=== PATIENT | female | born 1970 | race Caucasian/White ===

== ENCOUNTER 2017-03-02 21:03 | Observation (INO) ==
[2017-03-02] MEDS ORDERED: Naloxone 0.4 MG/ML INJ IVP PRN (21:23)
[2017-03-02] MEDS ORDERED: traMADol 50 MG TABLET PO PRN (23:10)
[2017-03-03] MEDS: Acetaminophen 325 MG TABLET PO SCH ×4 (00:01→17:52)
[2017-03-03] MEDS: *HR* Rivaroxaban 15 MG TABLET PO SCH ×2 (00:04→17:52)
[2017-03-03 06:01] LABS: INR 1.9; Prothrombin Time 20.5 Seconds (9.4-12.1)
[2017-03-03 06:08] LABS: Basophils % 0.8 %; Eosinophils % 0.6 %; Hematocrit 32.2 % (35.3-44.9); Hemoglobin 10.8 g/dL (11.5-15.4); Immature Granulocytes % 0.2 % (0-4); Lymphocytes # 1.5 K/mcL (0.6-4.6); Lymphocytes % 29.6 %; Mean Corpuscular HGB Conc 33.5 g/dL (31.6-35.5); Mean Corpuscular Hemoglobin 28.3 pg (28.0-33.3); Mean Corpuscular Volume 84.3 fL (83.0-100.0); Mean Platelet Volume 8.5 fL (9.4-12.4); Monocytes # 0.5 K/mcL (0.0-1.3); Platelet Count 462 K/mcL (140-400); Red Blood Count 3.82 M/mcL (3.82-4.97); Segmented Neutrophils % 58.8 %
[2017-03-03 06:21] LABS: Potassium 4.3 mEq/L (3.5-4.5)
[2017-03-03] MEDS ORDERED: hydrOXYzine pamoate 25 MG CAPSULE PO PRN (11:00)
[2017-03-03] MEDS: Gabapentin 300 MG CAPSULE PO SCH ×2 (15:18→20:40)
[2017-03-03] MEDS ORDERED: Artificial Tears SOLN 15 ML BOTTLE BOTH EYES PRN (15:19)
[2017-03-03] MEDS ORDERED: hydrOXYzine pamoate 25 MG CAPSULE PO SCH ×2 (17:45→18:00)
--- NOTE | 2017-03-03 17:45 | Internal Med History&Physical ---
Date of Encounter: 03/03/17 Time of Encounter: 17:00 Assessment and Plan (1) Chest pain Current visit: No Status: Acute Suspect noncardiac etiology. Appears to be at least partially due to chest wall origin. Because of renal insufficiency I will give her prednisone instead of NSAID. 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 Duration of treatment is not certain but seems to have been no more than 6-7 weeks. We will check d-dimer and start OAC if elevated. Qualifiers: Pulmonary embolism type: other Chronicity: unspecified Acute cor pulmonale presence: without acute cor pulmonale Qualified Code(s): I26.99 - Other pulmonary embolism without acute cor pulmonale (3) Anemia Current visit: Yes Status: Acute Will order anemia testing in a.m. Qualifiers: Anemia type: unspecified type Qualified Code(s): D64.9 - Anemia, unspecified (4) Azotemia Current visit: Yes Status: Acute We will hold lisinopril/HCTZ and give IV fluids. Recheck labs in a.m. Internal Medicine - H&P: HPI Chief complaint: Vomiting, diarrhea, chest discomfort Admitted From: Emergency Dept Plans for Post Hospital Care: Home History of present illness: Ms. Cano is a 46 year old female who went to [facility] emergency room stating she had onset of vomiting diarrhea and chest discomfort approximately 7 PM the evening of March 01. She was evaluated and felt to deserve admission but there were no beds available so she was transferred from [facility] to [facility] as a direct admit for ongoing care needs. Chest CT done during her [facility] emergency room evaluation showed right lower lobe pleural-based lesion measuring 3.1 x 2.3 cm possible representing pulmonary infarct versus atelectasis or consolidation or less likely neoplasm. She reports she had a pulmonary embolism October 2016 following cholecystectomy. She states she was not given sequential compression devices for DVT prevention while hospitalized. She states she was given a one month's prescription for Xarelto but her PCP did not renew this when she went the office for follow-up visit. She has not had chest pain or significant dyspnea until onset of March 01 as per above. Her respiratory history is significant for having smoked from age 22 up to 1-1/ 2 packs per day. She states she has not smoked for approximate 7 months in the interval since starting at age 22. She has diagnoses of COPD and asthma but does not use home oxygen. Cardiovascular history is significant otherwise for hypertension. She denies IN or heart failure. Past Med Surg Social Fam HX - Past Medical History Medical history: asthma, COPD, GERD, hyperlipidemia, hypertension Psychiatric history: depression, prior suicide attempt, previous psychiatric hospitalization - Past Surgical History Surgical History: cholecystectomy, other - Social History Smoking Status: Current every day smoker Smokeless Tobacco Status: No Alcohol use: heavy Drug use: marijuana, prescription drug abuse, other - Family History Mother Living Status: Hx Family Cardiac Disorders: Yes Hx Family Respiratory Disorders: Yes Father Adopted: [place]: Catherine Damon Living Status: Age at : 64 Cause of : Cancer Hx Family Cancer: Yes Internal Medicine - H&P: Meds Cetirizine HCl [Zyrtec] 10 mg PO DAILY 10/01/16 [History] Folic Acid 1 mg PO DAILY 10/01/16 [History] Gabapentin [Neurontin] 600 mg PO TID 10/01/16 [History] Lisinopril-HCTZ 10-12.5 [Prinzide 10-12.5] 1 tab PO DAILY 10/01/16 [History] Montelukast [Singulair] 10 mg PO DAILY 10/01/16 [History] Omeprazole [PriLOSEC] 20 mg PO DAILY 10/01/16 [History] Quetiapine Fumarate [Seroquel] 150 mg PO BID 10/01/16 [History] hydrOXYzine HCl [Hydroxyzine HCl] 100 mg PO TID 10/01/16 [History] Albuterol Sulfate [Albuterol Inhaler] 2 puff IH Q4-6H PRN 01/12/17 [History] Melatonin [Melatin] 3 mg PO HS 01/12/17 [History] rOPINIRole [Requip] 1 mg PO HS 01/12/17 [History] Nicotine Patch [Nicoderm] 14 mg TD DAILY patch.td24 01/15/17 [Rx] traZODone [TraZODone] 50 mg PO HS PRN tablet 01/15/17 [Rx] 3 Allergy/AdvReac Type Severity Reaction Status Date / Time cephalexin Allergy Swelling Verified 10/01/16 15:49 of Lip/Tongue/Throat All Systems PM: A 10-system review of systems was performed and is negative for pertinent findings except as documented above in the HPI. Review of systems: Gen.: She states her weight has decreased approximately 30 pounds in the past year, unintentional Cardiovascular: As per history of present illness Respiratory: As per history of present illness GI: She had cholecystectomy October 2016. She denies disorders of her liver or exocrine pancreas. : She has had urinary tract infections in the past. She denies other kidney or bladder disorders. Neurologic: Mental status: She denies large distribution strokes or seizures Endocrine: She has hyperlipidemia but denies diabetes or thyroid disease Hematology/oncology: She denies blood disorders cancers or anemia Psychiatric: She has a history of depression and has had suicidal ideations in the past. She follows mental health clinic. [place] skeletal: She has DJD but denies gout or other bone joint or muscle disorders. - Constitutional Vitals: Temp Pulse Resp BP Pulse Ox 98.1 F 89 16 114/83 98 03/03/17 15:37 03/03/17 15:37 03/03/17 15:37 03/03/17 15:37 03/03/17 15:37 Exam: Gen.: She is a well-developed well-nourished female sitting in a chair at bedside who appears in no acute distress HEENT: Head is atraumatic and normocephalic. Eyes: EOMI. There is no scleral icterus. Mouth: Mucosa is moist. Neck: Supple and nontender. There is no thyromegaly or adenopathy noted. Heart: Regular without murmurs gallops or ectopics Chest: She has tender costosternal joint stating "that is the chest pain" on compression. Lungs: No wheezes or crackles are heard. Abdomen: Soft and nontender. No masses or guarding are noted. Extremities: There is no cyanosis edema or clubbing noted. Dorsalis pedis and posttibial pulses are trace to 1+ palpable bilaterally. Neurologic: Mental status: She is talkative and a good historian. Cranial nerves: Smile is symmetric. Forehead wrinkles bilaterally. Tongue protrudes midline. EOMI. She is lightly hard of hearing. Motor: There is no pronator drift. Cerebellar: Finger to nose is intact bilaterally. Skin: Warm and dry Internal Med - H&P Results - Labs CBC & Chem 7: 03/03/17 04:39 03/03/17 04:39 Labs: Short CBC 03/03/17 Range/Units 04:39 WBC 5.1 (4.3-11.1) K/mcL Hgb 10.8 L D (11.5-15.4) g/dL Hct 32.2 L (35.3-44.9) % Plt Count 462 H (140-400) K/mcL Neutrophils # 3.0 (1.6-8.9) K/mcL BMP 03/03/17 04:39 Sodium 136 D Potassium 4.3 Chloride 104 Carbon Dioxide 22 BUN 23 H Creatinine 1.35 H Glucose 79 Calcium 9.0
[2017-03-03] MEDS: Artificial Tears SOLN 15 ML BOTTLE BOTH EYES SCH (21:50)
[2017-03-03] MEDS ORDERED: Acetaminophen 325 MG TABLET PO SCH (23:12)
[2017-03-04] MEDS ORDERED: hydrOXYzine pamoate 25 MG CAPSULE PO SCH
[2017-03-04] MEDS: hydrOXYzine pamoate 25 MG CAPSULE PO SCH ×3 (01:58→16:30)
[2017-03-04] MEDS: Acetaminophen 325 MG TABLET PO SCH ×4 (01:58→18:29)
[2017-03-04] MEDS: Gabapentin 300 MG CAPSULE PO SCH ×3 (08:31→20:31)
[2017-03-04 10:10] LABS: Hematocrit 31.4 % (35.3-44.9); Hemoglobin 10.5 g/dL (11.5-15.4); Mean Corpuscular Volume 85.8 fL (83.0-100.0); Red Blood Count 3.66 M/mcL (3.82-4.97)
[2017-03-04 10:11] LABS: Basophils % 0.6 %; Eosinophils # 0.1 K/mcL (0.0-0.6); Eosinophils % 1.6 %; Immature Granulocytes % 0.4 % (0-4); Lymphocytes # 1.7 K/mcL (0.6-4.6); Lymphocytes % 33.4 %; Mean Corpuscular HGB Conc 33.4 g/dL (31.6-35.5); Mean Corpuscular Hemoglobin 28.7 pg (28.0-33.3); Mean Platelet Volume 8.6 fL (9.4-12.4); Monocytes # 0.5 K/mcL (0.0-1.3); Monocytes % 9.4 %; Neutrophils # 2.7 K/mcL (1.6-8.9); Platelet Count 457 K/mcL (140-400); Segmented Neutrophils % 54.6 %
[2017-03-04 10:50] LABS: Albumin 3.1 g/dL (3.5-5.0); Albumin/Globulin Ratio 0.9 (1.1-2.2); Bilirubin,Total 0.2 mg/dL (0.2-1.2); Calcium 9.3 mg/dL (8.6-10.8); Globulin 3.4 g/dL (2.4-3.5); Magnesium 1.6 mg/dL (1.6-2.6); Potassium 4.5 mEq/L (3.5-4.5); Total Protein 6.5 g/dL (6.0-8.3)
--- NOTE | 2017-03-04 11:52 | Internal Med Progress Note ---
Date of Encounter: 03/04/17 Time of Encounter: 11:45 - Assessment and plan (1) Chest pain Current Visit: No Status: Acute Assessment and plan: March 04. Willl give prednisone instead of NSAIDs for costosternal joint pain. Qualifiers: Chest pain type: unspecified Qualified Code(s): R07.9 - Chest pain, unspecified (2) Pulmonary embolism Current Visit: No Status: Acute Assessment and plan: March 04. Her d-dimer returned well within normal range. There is uncertainty as to how long she was initially on OAC. I will continue Xarelto at this time Qualifiers: Pulmonary embolism type: other Chronicity: unspecified Acute cor pulmonale presence: without acute cor pulmonale Qualified Code(s): I26.99 - Other pulmonary embolism without acute cor pulmonale (3) Anemia Current Visit: Yes Status: Acute Assessment and plan: March 04. Anemia testing is pending Qualifiers: Anemia type: unspecified type Qualified Code(s): D64.9 - Anemia, unspecified (4) Azotemia Current Visit: Yes Status: Acute Assessment and plan: March 04. Minimally changed. Remain off lisinopril/HCTZ and monitor renal indices. - Subjective Interval history: March 04. She has no new complaints. She states her chest pain is perhaps slightly improved. She does complain of pain in her neck down her spine into her coccyx area. This is a chronic type pain for her. - Constitutional Vitals: Temp Pulse Resp BP Pulse Ox 97.4 F L 88 18 91/63 95 03/04/17 10:19 03/04/17 10:19 03/04/17 10:19 03/04/17 10:19 03/04/17 10:19 Exam: She is sitting in a chair at bedside and appears in no significant pain. Her affect is cheerful overall. I reviewed her medications and lab results. Internal Medicine: Result - Labs CBC & Chem 7: 03/04/17 06:48 03/04/17 06:48 Labs: Short CBC 03/04/17 Range/Units 06:48 WBC 5.0 (4.3-11.1) K/mcL Hgb 10.5 L (11.5-15.4) g/dL Hct 31.4 L (35.3-44.9) % Plt Count 457 H (140-400) K/mcL Neutrophils # 2.7 (1.6-8.9) K/mcL BMP 03/04/17 06:48 Sodium 134 L Potassium 4.5 Chloride 103 Carbon Dioxide 20 BUN 20 Creatinine 1.37 H Glucose 98 Calcium 9.3 Liver Function 03/04/17 Range/Units 06:48 Total Bilirubin 0.2 (0.2-1.2) mg/dL AST 22 (5-34) Units/L ALT 28 (0-55) Units/L Alkaline Phosphatase 98 (38-126) Units/L Albumin 3.1 L (3.5-5.0) g/dL - ABG Interpretation ABG results: PT/INR, D-dimer PT 20.5 Seconds (9.4-12.1) H D 03/03/17 04:39 D-Dimer 295 ng/mLFEU (0-500) 03/03/17 18:45 Consult Discharge Plan - Plan Referrals: NONE,PCP [Primary Care Provider] - 1 week
[2017-03-04 12:07] LABS: Folate 16.2 ng/mL (7.0-31.4)
[2017-03-04] MEDS: traMADol 50 MG TABLET PO SCH ×3 (13:07→20:31)
[2017-03-04] MEDS: predniSONE 10 MG TABLET PO SCH ×2 (13:08→16:39)
[2017-03-04] MEDS: *HR* Rivaroxaban 15 MG TABLET PO SCH (16:31)
[2017-03-04] MEDS: ALPRAZolam 0.25 MG TABLET PO PRN (16:38)
[2017-03-04] MEDS: Artificial Tears SOLN 15 ML BOTTLE BOTH EYES SCH (18:32)
[2017-03-05] MEDS: hydrOXYzine pamoate 25 MG CAPSULE PO SCH ×4 (00:37→22:55)
[2017-03-05] MEDS: Acetaminophen 325 MG TABLET PO SCH ×5 (00:37→22:55)
[2017-03-05] MEDS: traMADol 50 MG TABLET PO SCH ×4 (02:00→22:55)
[2017-03-05] MEDS: predniSONE 10 MG TABLET PO SCH ×2 (10:07→17:02)
[2017-03-05] MEDS: Gabapentin 300 MG CAPSULE PO SCH ×3 (10:08→22:54)
[2017-03-05] MEDS: *HR* Rivaroxaban 15 MG TABLET PO SCH (17:02)
[2017-03-05] MEDS: Artificial Tears SOLN 15 ML BOTTLE BOTH EYES SCH (17:46)
--- NOTE | 2017-03-05 18:24 | Internal Med Progress Note ---
Date of Encounter: 03/05/17 Time of Encounter: 18:15 - Assessment and plan (1) Chest pain Current Visit: No Status: Acute Assessment and plan: March 04. Willl give prednisone instead of NSAIDs for costosternal joint pain. March 05. Continue prednisone Qualifiers: Chest pain type: unspecified Qualified Code(s): R07.9 - Chest pain, unspecified (2) Pulmonary embolism Current Visit: No Status: Acute Assessment and plan: March 04. Her d-dimer returned well within normal range. There is uncertainty as to how long she was initially on OAC. I will continue Xarelto at this time March 05. Continue Xarelto Qualifiers: Pulmonary embolism type: other Chronicity: unspecified Acute cor pulmonale presence: without acute cor pulmonale Qualified Code(s): I26.99 - Other pulmonary embolism without acute cor pulmonale (3) Anemia Current Visit: Yes Status: Acute Assessment and plan: March 04. Anemia testing is pending March 05. Will start ferrous sulfate with vitamin C. Qualifiers: Anemia type: unspecified type Qualified Code(s): D64.9 - Anemia, unspecified (4) Azotemia Current Visit: Yes Status: Acute Assessment and plan: March 04. Minimally changed. Remain off lisinopril/HCTZ and monitor renal indices. March 05. Essentially unchanged from 12/05/2016. Remain off lisinopril/ HCTZ. I told her she likely had chronic kidney disease stage III. - Subjective Interval history: March 04. She has no new complaints. She states her chest pain is perhaps slightly improved. She does complain of pain in her neck down her spine into her coccyx area. This is a chronic type pain for her. March 05. She has no new complaints. She states her chest pain is lessened. - Constitutional Vitals: Temp Pulse Resp BP Pulse Ox 98.3 F 99 16 105/70 95 03/05/17 15:51 03/05/17 17:01 03/05/17 15:51 03/05/17 17:01 03/05/17 17:01 Exam: She is sitting in a chair at bedside resting comfortably. She has no significant costosternal joint tenderness. Her affect is bright and cheerful. I reviewed her medications and lab results. Internal Medicine: Result - Labs CBC & Chem 7: 03/04/17 06:48 03/04/17 06:48 - ABG Interpretation ABG results: PT/INR, D-dimer PT 20.5 Seconds (9.4-12.1) H D 03/03/17 04:39 D-Dimer 295 ng/mLFEU (0-500) 03/03/17 18:45 Consult Discharge Plan - Plan Referrals: NONE,PCP [Primary Care Provider] - 1 week
[2017-03-05] MEDS ORDERED: Melatonin 3 MG TABLET PO SCH (21:00)
[2017-03-05] MEDS: ALPRAZolam 0.25 MG TABLET PO PRN (23:08)
[2017-03-06] MEDS ORDERED: Ascorbic Acid 500 MG TABLET PO SCH (06:30)
[2017-03-06] MEDS: traMADol 50 MG TABLET PO SCH (06:38)
[2017-03-06] MEDS: Acetaminophen 325 MG TABLET PO SCH (06:38)
[2017-03-06] MEDS: ALPRAZolam 0.25 MG TABLET PO PRN (06:41)
[2017-03-06] MEDS: hydrOXYzine pamoate 25 MG CAPSULE PO SCH (08:08)
[2017-03-06] MEDS: Gabapentin 300 MG CAPSULE PO SCH (08:09)
[2017-03-06] MEDS: predniSONE 10 MG TABLET PO SCH (08:09)
[2017-03-06] MEDS ORDERED: Nicotine 21 MG PATCH.TD24 TD SCH (09:00)
[2017-03-06 10:50] VITALS: BP 97/66
--- NOTE | 2017-03-06 11:30 | Discharge Summary ---
Date of Encounter: 03/06/17 Time of Encounter: 11:20 - Discharge Diagnosis (1) Chest pain Priority: Primary Status: Acute Qualifiers: Chest pain type: unspecified Qualified Code(s): R07.9 - Chest pain, unspecified (2) Pulmonary embolism Priority: Secondary Status: Chronic Qualifiers: Pulmonary embolism type: other Chronicity: unspecified Acute cor pulmonale presence: without acute cor pulmonale Qualified Code(s): I26.99 - Other pulmonary embolism without acute cor pulmonale (3) Anemia Priority: Secondary Status: Acute Qualifiers: Anemia type: iron deficiency Iron deficiency anemia type: unspecified iron deficiency Qualified Code(s): D50.9 - Iron deficiency anemia, unspecified (4) Azotemia Priority: Secondary Status: Chronic - Discharge Medications Home Medications: Folic Acid 1 mg PO DAILY 10/01/16 [History] Gabapentin [Neurontin] 600 mg PO TID 10/01/16 [History] Montelukast [Singulair] 10 mg PO DAILY 10/01/16 [History] Omeprazole [PriLOSEC] 20 mg PO DAILY 10/01/16 [History] Quetiapine Fumarate [Seroquel] 150 mg PO BID 10/01/16 [History] hydrOXYzine HCl [Hydroxyzine HCl] 100 mg PO TID 10/01/16 [History] Albuterol Sulfate [Albuterol Inhaler] 2 puff IH Q4-6H PRN 01/12/17 [History] Melatonin [Melatin] 3 mg PO HS 01/12/17 [History] rOPINIRole [Requip] 1 mg PO HS 01/12/17 [History] Nicotine Patch [Nicoderm] 14 mg TD DAILY patch.td24 01/15/17 [Rx] traZODone [TraZODone] 50 mg PO HS PRN tablet 01/15/17 [Rx] Ascorbic Acid [Vitamin C] 500 mg PO 0630 tablet 03/06/17 [Rx] Ferrous Sulfate 325 mg PO 0630 tablet 03/06/17 [Rx] Rivaroxaban [Xarelto] 15 mg PO 1700 tablet 03/06/17 [Rx] Allergies/Adverse Reactions: 3 Allergy/AdvReac Type Severity Reaction Status Date / Time cephalexin Allergy Swelling Verified 10/01/16 15:49 of Lip/Tongue/Throat Date of admission: 03/02/17 21:08 Primary care physician: PCP NONE Consults: 03/03/17 09:38 Consult to Occupational Therapy [CONS] Routine Comment: Evaluate, develop and implement POC Reason for Consult: Weakness Consult to Physical Therapy [CONS] Routine Comment: Evaluate, develop and implement POC Reason for Consult: Weakness - Patient Status Disposition: Transfer SNF Overall status at discharge: patient is progressing back to baseline - Discharge Instructions - Diet and Activity Activity: as per physical therapy Diet: regular diet Hospital course: Ms. Cano is a 46 year old female who went to [facility] emergency room stating she had onset of vomiting diarrhea and chest discomfort approximately 7 PM the evening of March 01. She was evaluated and felt to deserve admission but there were no beds available so she was transferred from [facility] to [facility] as a direct admit for ongoing care needs. Initial orders were written by the emergency room physician. I saw her on March 03 and performed a history and physical. She was started on prednisone and chest pain had essentially resolved by the day of discharge. I felt it was chest wall origin. She will not continue with steroids after discharge. D-dimer returned within normal range at 295. However since she had had an abbreviated length of treatment initially for DVT/pulmonary embolism lasting approximately 6 weeks I elected to continue Xarelto at this time. PCP can discontinue in 4-6 weeks if clinically stable. Azotemia remained stable with creatinine 1.37 on March 04 and estimated GFR 42. I suspect she has chronic kidney disease stage III. Anemia testing showed iron 36, transferrin saturation 9%, transferrin 287, ferritin 63, B12 312, and folate 16.2. She was started on ferrous sulfate with vitamin C and this will be continued at discharge. On March 06 word was received she was accepted for admission to [facility] in [place]. - Time Spent with Patient Total time spent providing and/or coordinating discharge services: - Constitutional Vitals: Temp Pulse Resp BP Pulse Ox 97.5 F L 96 18 97/66 96 03/06/17 10:49 03/06/17 10:49 03/06/17 10:49 03/06/17 10:49 03/06/17 10:49
--- NOTE | 2017-03-06 11:44 | Physician Discharge Referral ---
ExtendedCare Referral Info Transfer To: [facility] Provider in Charge: Ross Provider in Charge after Transfer: PCP - Diagnosis (1) Chest pain Priority: Primary Status: Acute (2) Pulmonary embolism Priority: Secondary Status: Chronic (3) Anemia Priority: Secondary Status: Acute (4) Azotemia Priority: Secondary Status: Chronic Prognosis: Good Aware of Diagnosis: Patient Aware of Prognosis: Patient - Transfer Medications Home Medications: Folic Acid 1 mg PO DAILY 10/01/16 [History] Gabapentin [Neurontin] 600 mg PO TID 10/01/16 [History] Montelukast [Singulair] 10 mg PO DAILY 10/01/16 [History] Omeprazole [PriLOSEC] 20 mg PO DAILY 10/01/16 [History] Quetiapine Fumarate [Seroquel] 150 mg PO BID 10/01/16 [History] hydrOXYzine HCl [Hydroxyzine HCl] 100 mg PO TID 10/01/16 [History] Albuterol Sulfate [Albuterol Inhaler] 2 puff IH Q4-6H PRN 01/12/17 [History] Melatonin [Melatin] 3 mg PO HS 01/12/17 [History] rOPINIRole [Requip] 1 mg PO HS 01/12/17 [History] Nicotine Patch [Nicoderm] 14 mg TD DAILY patch.td24 01/15/17 [Rx] traZODone [TraZODone] 50 mg PO HS PRN tablet 01/15/17 [Rx] Ascorbic Acid [Vitamin C] 500 mg PO 0630 tablet 03/06/17 [Rx] Ferrous Sulfate 325 mg PO 0630 tablet 03/06/17 [Rx] Rivaroxaban [Xarelto] 15 mg PO 1700 tablet 03/06/17 [Rx] Allergies/Adverse Reactions: 3 Allergy/AdvReac Type Severity Reaction Status Date / Time cephalexin Allergy Swelling Verified 10/01/16 15:49 of Lip/Tongue/Throat - Respiratory Orders Smoking Cessation: Smoking cessation has been advised. For more information, call the [place] Tobacco Quit Line at 9-760-QWBO-NOW. - Mobility Orders Ambulate - Rehabiliation Orders Rehab Potential: Good Rehab Orders: Evaluation for Physical Therapy, Evaluation for Occupational Therapy - Diet Orders Regular CERTIFICATION: I certify that the transfer of the above named patient to an Extended Care Facility is necessary for the continuing treatment of the diagnosis listed. The above information is true and accurate reflection of patient's current condition. Confidential - Redisclosure prohibited without a patient's written consent.
== END 2017-03-06 12:55 ==
LOC: INPPIK
PROVIDERS: ADMIT Internal Medicine; ATTEND Internal Medicine